=== PATIENT | female | born 1975 | race American Indian/Alaskan Native ===

== ENCOUNTER 2019-01-11 14:13 | Outpatient (CLI) | payer BC ==
--- NOTE | 2019-01-12 14:57 | Ultrasound Report ---
BILATERAL DIGITAL DIAGNOSTIC MAMMOGRAM with CAD and BILATERAL BREAST ULTRASOUND: 01/11/19 14:13:00 CLINICAL: Bilateral breast pain and history of bilateral benign surgical excisions and papillomas. COMPARISON:05/09/15 FINDINGS: The breasts are heterogeneously dense, which may obscure small masses. Scattered bilateral benign calcifications. No mass, architectural distortion or suspicious calcifications. Minimal bilateral benign postsurgical scar. Ultrasound of the right breast (including all four quadrants and the retroareolar area) was performed and demonstrated several benign cysts and moderate duct ectasia. Duct ectasia is pronounced in the retroareolar area. However, no intraductal lesions are identified. The largest cyst is at 9:30 o'clock 8 cm from the nipple and it measures 1.7 x 0.9 x 1.4 cm. An irregular oval solid mass at 11 o'clock 6 cm from the nipple measures 1.7 x 1.0 x 1.4 cm. Ultrasound of the right axilla demonstrated several lymph nodes with central fat and benign morphology. No suspicious lymph nodes. Ultrasound of the left breast (including all four quadrants and the retroareolar area) was performed and demonstrated moderate duct ectasia and a few small benign cysts. An oval irregular solid hypoechoic mass at 2 o'clock 4 cm from the nipple measures 0.9 x 0.7 x 0.8 cm. An irregular solid hypoechoic mass at 1 o'clock 4 cm from the nipple produces mild shadowing and measures 0.6 x 0.5 x 0.4 cm. Ultrasound of the left axilla demonstrated no suspicious lymph nodes. IMPRESSION: Bilateral benign cysts and benign duct ectasia. Bilateral suspicious solid breast masses (9:30 o'clock 8 cm from the nipple on the right and at 1 o'clock 4 cm from the nipple and 2 o'clock 4 cm from the nipple on the left). Recommend bilateral ultrasound guided needle biopsies. . BI-RADS CATEGORY: 4--Suspicious I discussed the findings and the recommendation for bilateral needle core biopsy with the patient at the time of the examination. ACR BI-RADS MAMMOGRAPHIC CODES: 0 = Needs additional imaging evaluation; 1 = Negative; 2 = Benign; 3 = Probably benign; 4 = Suspicious; 5 = Malignant; 6 = Known biopsy-proven malignancy COMMENT: 1. Dense breast tissue, i.e., adenosis, fibrocystic changes, etc., may obscure an underlying neoplasm. 2. Approximately 10% of cancers are not detected with mammography. 3. A negative mammography report should not delay biopsy if a clinically suspicious mass is present. COMMENT: Patient follow-up letters are generated by our [employer] application.
== END 2019-01-11 14:14 | disposition home or self-care (01) ==
LOC: SPVWC 14:13
PROVIDERS: ATTEND Obstetrics & Gynecology
DX: N60.42 Mammary duct ectasia of left breast (principal); N60.41 Mammary duct ectasia of right breast; N60.01 Solitary cyst of right breast; N60.02 Solitary cyst of left breast; E66.9 Obesity, unspecified; Z90.49 Acquired absence of other specified parts of digestive tract
CPT/HCPCS: 77066

== ENCOUNTER 2019-01-26 09:06 | Outpatient (CLI) | payer BC ==
--- NOTE | 2019-01-26 10:49 | History and Physical Report ---
History of Present Illness Date of examination: 01/26/19 Chief complaint: rt. breast mass History of present illness: recent Medications and Allergies Allergies Allergy/AdvReac Type Severity Reaction Status Date / Time No Known Allergies Allergy Unverified 06/20/14 16:52 Home Medications Medication Instructions Recorded Confirmed Last Taken Type No Known Home Medications [No 06/20/14 06/20/14 Unknown History Reported Home Medications]
--- NOTE | 2019-01-26 10:52 | Procedure Note ---
Date of procedure: 01/26/19 Pre-op diagnosis: rt. breast mass Post-op diagnosis: same Procedure: u/s guided bx Findings: solid tiisue Anesthesia: local Surgeon: EMMY PEREZ Estimated blood loss: none Pathology: list (rt. breast tissue) Specimen disposition: to lab Condition: stable Disposition: same day
--- NOTE | 2019-01-26 11:02 | Ultrasound Report ---
Ultrasound guided right breast aspiration, biopsy, marker placement, 2 view mammography: Imaging of the right breast was performed based on prior ultrasound report it was somewhat confusing as to the appropriate lesion to be biopsied. In the 9:30 location 8 cm from the nipple there is a dominant anechoic appearing mass. Following skin cleansing and local anesthesia an aspiration was performed confirming this to be a simple cyst. The aspirate was discarded. A circumscribed homogeneously hypoechoic mass is also noted in the 11:00 location 6 cm from the nipple. The patient was draped and the skin was cleansed. 1% lidocaine as well as 2% lidocaine with epinephrine was used for local anesthesia. Under ultrasound guidance a 13-gauge guide was successfully positioned. A 14-gauge Bard disposable biopsy device was then used to take numerous sections through various portions of the lesion. A marker was left in place. The entrance site was covered with a water-soluble bandage. A two-view mammogram was then performed confirming position of the marker within a nodular density in the superior breast. There were no patient or procedural complications and the patient was discharged with followup instructions.
== END 2019-01-26 09:07 | disposition home or self-care (01) ==
LOC: SPVWC 09:06
PROVIDERS: ATTEND Obstetrics & Gynecology
DX: D24.1 Benign neoplasm of right breast (principal); E66.9 Obesity, unspecified; Z98.890 Other specified postprocedural states; Z90.49 Acquired absence of other specified parts of digestive tract
CPT/HCPCS: 88305

== ENCOUNTER 2019-02-02 08:54 | Outpatient (CLI) | payer BC ==
--- NOTE | 2019-02-02 11:13 | Mammography Report ---
LEFT DIGITAL DIAGNOSTIC MAMMOGRAM: 02/02/19 08:54:00 CLINICAL: For clip placement immediately status post ultrasound guided needle biopsy at 1 o'clock and 2 o'clock. COMPARISON:01/11/19 FINDINGS: A hydro-kian localizer clip is identified at 1 o'clock approximately 5 cm from the nipple and a larger U-shaped clip is identified at 2 o'clock approximately 2 cm from the nipple. IMPRESSION: Concordant clip placement status post ultrasound biopsy at 2 sites. BI-RADS CATEGORY: 4--Suspicious Pathology pending.
--- NOTE | 2019-02-02 12:39 | Ultrasound Report ---
ULTRASOUND GUIDED NEEDLE CORE BIOPSY WITH CLIP PLACEMENT AT 2 SITES RIGHT BREAST : 02/02/19 CLINICAL: Suspicious left breast masses at 1 o'clock 4 cm from the nipple and at 2 o'clock 4 cm from the nipple. History of papillomas. COMPARISON :01/11/19 FINDINGS: The procedure was explained to the patient and informed consent was obtained . Ultrasound demonstrated the 2 lesions at 1 o'clock and 2 o'clock. Attention was first given to the lesion at 2 o'clock. The skin was prepped with Betadine and anesthetized with 1% lidocaine. Ultrasound needle core biopsy was performed at through a small dermatotomy using ultrasound guidance, 2% lidocaine with epinephrine for deep anesthesia and a 14-gauge Achieve biopsy device. 4 cores were obtained and placed in formalin. The lesion showed some collapse with sampling. In addition, a moderate amount of hemorrhage from the skin incision as well as deeper hemorrhage around the lesion. A U-shaped localizer clip was placed within the lesion. After achieving hemostasis with pressure, attention was then given to the lesion at 1 o'clock. The skin was prepped with Betadine and anesthetized with 1% lidocaine. Ultrasound needle core biopsy was performed through a small dermatotomy using ultrasound guidance, 2% lidocaine with epinephrine for deep anesthesia and a 14-gauge coaxial Bard biopsy device. 4 cores were obtained and placed in formalin. A hydro-kian clip was deployed within the lesion. Hemostasis was obtained both sites with minimal pressure and sterile dressings were applied. The patient tolerated the procedure well and there were no apparent complications. A two-view mammogram demonstrated concordant clip placement at 2 sites. She was discharged in good condition and was given instructions for wound care and followup. IMPRESSION: Uncomplicated ultrasound-guided needle core biopsy of 2 left breast masses .
== END 2019-02-02 08:55 | disposition home or self-care (01) ==
LOC: SPVWC 08:54
PROVIDERS: ATTEND Obstetrics & Gynecology
DX: D24.2 Benign neoplasm of left breast (principal); R92.0 Mammographic microcalcification found on diagnostic imaging of breast; E66.9 Obesity, unspecified; Z98.890 Other specified postprocedural states; Z90.49 Acquired absence of other specified parts of digestive tract
CPT/HCPCS: 19083; 19084; 77065; 88305; 88342; A4648; 88341

== ENCOUNTER 2019-09-27 08:18 | Outpatient (CLI) | payer BC ==
--- NOTE | 2019-09-27 09:39 | Mammography Report ---
BILATERAL DIGITAL DIAGNOSTIC MAMMOGRAM WITH CAD 09/27/2019 BILATERAL LIMITED BREAST ULTRASOUND INDICATION: History of bilateral needle biopsies with pathologically confirmed benign fibroadenomas TECHNIQUE: Digital bilateral mammographic imaging was performed. Limited ultrasound was performed. T his examination was interpreted with the benefit of Computer-Aided Detection (CAD) analysis. COMPARISON: Mammograms and ultrasounds from December and January 2019 FINDINGS: Breast Density: The breasts are heterogeneously dense, which may obscure small masses. MAMMOGRAPHIC FINDINGS: There is no evidence of new mass, suspicious calcifications or architectural d istortion in either breast. A right upper outer biopsy clip with a cyst partially circumscribed mass at the clip. 2 left upper outer biopsy clips. ULTRASOUND FINDINGS: Targeted ultrasound evaluation was performed of the area of interest. Ultrasou nd of the right breast demonstrated a solid heterogeneous hypoechoic mass at 11:00 6 cm from the nipp le measuring 1.7 x 0.9 1.5 cm compared to 1.5 x 1.6 x 1.1 cm on the last exam. It contains a biopsy c lip. Ultrasound of the left breast demonstrated a solid mass with a biopsy clip at 1:00 4 cm from the nipple measuring 7 x 3 x 5 mm compared to 8 x 4 x 4 mm on the last exam. A mass at 2:00 4 cm from th e nipple with a biopsy clip measures 8 x 5 x 7 mm compared to 10 x 6 x 7 mm on the last exam. IMPRESSION: 1. No mammographic evidence of malignancy. 2. Stable bilateral benign fibroadenomas. Follow up recommendation: Routine yearly BI-RADS Category 2: Benign. A "normal" or negative report should not discourage follow up or biopsy of a clinically significant f inding. A written summary of these findings will be mailed to the patient. The patient will be entered into a mammography reporting system which will generate a reminder letter for the patient's next appointmen t at the appropriate interval. According to the [employer], yearly mammograms are recommended starting at age 40 and continuing as long as a woman is in good health. Breast MRI is recommended for women with an ajay roximately 20-25% or greater lifetime risk of breast cancer, including women with a strong family his tory of breast or ovarian cancer and women who have been treated for Hodgkin's disease. Signer Name: Dimitry Cortez MD Signed: 09/27/2019 9:35 AM Workstation Name: [id number]
== END 2019-09-27 08:19 | disposition home or self-care (01) ==
LOC: SPVWC 08:18
PROVIDERS: ATTEND Surgery
DX: D24.2 Benign neoplasm of left breast (principal); D24.1 Benign neoplasm of right breast
CPT/HCPCS: 77066

== ENCOUNTER 2020-09-29 08:36 | Outpatient (CLI) | payer BC ==
--- NOTE | 2020-09-29 11:01 | Mammography Report ---
DIGITAL SCREENING MAMMOGRAM WITH CAD, 09/29/2020 CLINICAL INFORMATION / INDICATION: Routine screening mammography. SCREENING MAMMO TECHNIQUE: Digital bilateral 2D mammography was obtained in the craniocaudal and mediolateral obliqu e projections. This examination was interpreted with the benefit of Computer-Aided Detection analysis . COMPARISON: 09/27/2019 FINDINGS: Breast Density: The breasts are heterogeneously dense, which may obscure small masses. No dominant mass, suspicious calcifications, or architectural distortion in either breast. There are stable bilateral calcifications. Bilateral biopsy marking clips are noted. Bilateral surgical scars a re noted. IMPRESSION: No mammographic evidence of malignancy. Follow up recommendation: Routine yearly BI-RADS Category 2: Benign. A "normal" or negative report should not discourage follow up or biopsy of a clinically significant f inding. A written summary of these findings will be mailed to the patient. The patient will be entered into a mammography reporting system which will generate a reminder letter for the patient's next appointmen t at the appropriate interval. The [employer] recommends yearly mammograms starting at age 40 and continuing as l benson as a woman is in good health. Breast MRI is recommended for women with an approximate 20-25% or greater lifetime risk of breast cancer, including women with a strong family history of breast or ova isabel cancer or who have been treated for Hodgkin's disease. Abdominal pain either CTA of the patient and a venous dialysis patient is at the valve arising from b marian to the bowel is poorly there is shift of the study Signer Name: Lacho Zuniga MD Signed: 09/29/2020 10:55 AM Workstation Name: [employer]
== END 2020-09-29 08:37 | disposition home or self-care (01) ==
LOC: SPVWC 08:36
PROVIDERS: ATTEND Obstetrics & Gynecology
DX: Z12.31 Encounter for screening mammogram for malignant neoplasm of breast (principal); N64.89 Other specified disorders of breast
CPT/HCPCS: 77067

== ENCOUNTER 2021-09-30 08:52 | Outpatient (CLI) | payer BC | END 2021-09-30 08:53 | disposition home or self-care (01) | LOC: SPVWC 08:52 | PROVIDERS: ATTEND Obstetrics & Gynecology | DX: Z12.31 Encounter for screening mammogram for malignant neoplasm of breast (principal) | CPT/HCPCS: 77067 ==

== ENCOUNTER 2021-12-09 08:29 | Outpatient (CLI) | payer BC ==
--- NOTE | 2021-12-09 09:50 | Ultrasound Report ---
ULTRASOUND BREAST RIGHT LIMITED, 12/09/2021 CLINICAL INFORMATION / INDICATION: ABNORMAL MAMMOGRAM. Patient presents as a callback from screening mammogram for further evaluation of a nodular density in the right breast. TECHNIQUE: Targeted ultrasound evaluation was performed of the area of interest. COMPARISON: Prior mammogram 09/30/2021, and right breast ultrasound-guided cyst aspiration 01/26/2019 FINDINGS: Corresponding with the nodular density seen on recent mammogram, there is a benign cyst in the right breast 9:00 position located 9 cm from the nipple measuring up to 2.7 x 1.7 x 1.8 cm. It appears that this cyst has previously been aspirated on 01/26/2019. Incidental note is made of benign duct ectasia/ cluster of cysts in the 12:00 subareolar right breast. IMPRESSION: 1. A fluctuating benign cyst accounts for the recent mammographic finding. No suspicious sonographic abnormality identified. Follow up recommendation: Routine yearly BI-RADS Category 2: BENIGN. A normal or "negative" report should not preclude biopsy or follow-up of a clinically suspicious find ing. Signer Name: Genevieve Sesay MD Signed: 12/09/2021 9:45 AM Workstation Name: [email or web address]
== END 2021-12-09 08:30 | disposition home or self-care (01) ==
LOC: US 08:29
PROVIDERS: ATTEND Obstetrics & Gynecology
DX: N60.01 Solitary cyst of right breast (principal)